=== PATIENT | male | born 1945 | race Caucasian/White ===

== ENCOUNTER 2020-05-16 14:16 | Inpatient (IN) ==
[2020-05-16] MEDS ORDERED: Cefepime 2 GM in Dextrose(*) 2 GM/50 ML BAG IV ONE (14:49)
[2020-05-16] MEDS ORDERED: NS 0.9% 1000 ml BAG 1,000 ML IV ONE (14:57)
[2020-05-16] MEDS ORDERED: Vancomycin(*) 500 MG VIAL IVPB SCH (16:00)
[2020-05-16 16:30] LABS: ABS Lymphocytes 1.2 10^3/ul (1.0-4.8); ABS Monocytes 1.2 10^3/ul (0-0.8); Hematocrit 41 % (42-52); Hemoglobin 14.1 g/dL (14.0-18.0); Lymphocyte % 9.5 %; Mean Corpuscular HGB Conc 35 g/dL (31-36); Mean Corpuscular Hemoglobin 30 pg (27-31); Mean Corpuscular Volume 86 fL (80-94); Mean Platelet Volume 7.9 fL (7.4-10.4); Nucleated Red Blood Cells % 0.3; Platelet Count 280 10^3/uL (150-450); Red Blood Count 4.74 10^6 /uL (4.18-5.48); Red Cell Distribution Width 13 % (10-15); White Blood Count 12.3 10^3/uL (3.5-10.8)
[2020-05-16] MEDS ORDERED: Vancomycin 1500 MG IV - x ONCE IVPB ONE (17:00)
[2020-05-16 17:05] LABS: Albumin 3.5 g/dL (3.2-5.2); Albumin/Globulin Ratio 1.1 (1-3); BUN/Creatinine Ratio 20.5 (8-20); C Reactive Protein 212.26 mg/L (<8.01); Calcium 9.2 mg/dL (8.6-10.3); EGFR African American 117.4 (>60); Globulin 3.3 g/dL (2-4); Potassium 3.9 mmol/L (3.5-5.0); Total Bilirubin 0.9 mg/dL (0.2-1.0); Total Protein 6.8 g/dL (6.4-8.9)
[2020-05-16] MEDS ORDERED: Enoxaparin 80 MG/0.8 ML SYR(*) SUBCUT ONE (17:50)
[2020-05-16] MEDS ORDERED: Dextrose 50% Syringe 50 ml 25 GM/50 ML SYRINGE IV PUSH PRN (17:52)
[2020-05-16] MEDS ORDERED: Piperacillin/Tazobac ADVAN(*) 3.375 GM in NS 0.9% 100 ml BAG 100 ML IVPB ONE (17:55)
[2020-05-16] MEDS ORDERED: Vancomycin(*) 1,000 MG in NS 0.9% 250 ml 250 ML IVPB ONE (17:56)
[2020-05-16] MEDS ORDERED: Vancomycin per Pharmacy 1 EA NOTE FOLLOW UP SCH (18:00)
[2020-05-16] MEDS ORDERED: Zosyn per Pharmacy NOTE FOLLOW UP SCH (18:00)
[2020-05-16 18:14] LABS: Erythrocyte Sed Rate 89 mm/Hr (0-19)
[2020-05-16] MEDS ORDERED: Insulin LISPRO 100 units/ml(*) SUBCUT SCH (21:00)
[2020-05-16] MEDS: NS 0.9% 1000 ml BAG 1,000 ML IV SCH (23:00)
[2020-05-17] MEDS: Brimonidine/Timolol 0.2%/0.5% OPTH(NF) SOL 5 ML BOTH EYES SCH ×3 (03:01→20:57)
[2020-05-17] MEDS: Dorzolamide 2% OPTH (NF) 10 ML BTL BOTH EYES SCH ×3 (03:02→20:56)
[2020-05-17] MEDS: metroNIDAZOLE IV 500 MG/100ML 500 MG/100 ML BAG IVPB SCH ×4 (03:36→15:10)
[2020-05-17] MEDS: Insulin LISPRO 100 units/ml(*) SUBCUT SCH ×5 (03:52→17:47)
[2020-05-17] MEDS ORDERED: ceFAZolin 1 GM in Dextrose (*) 1 GM/50 ML BAG IVPB SCH (05:30)
[2020-05-17] MEDS: Cefepime 1 GM in Dextrose(*) 1 GM/50 ML BAG IV SCH ×2 (05:49→17:47)
[2020-05-17] MEDS ORDERED: VANCOMYCIN IVPB SCH (06:30)
[2020-05-17] MEDS ORDERED: NS 0.9% IVPB SCH (06:30)
[2020-05-17] MEDS ORDERED: Vancomycin(*) 1,500 MG in NS 0.9% 250 ml 250 ML IVPB SCH (06:33)
[2020-05-17] MEDS: Vancomycin(*) 1,500 MG in NS 0.9% 250 ml 250 ML IVPB SCH ×2 (06:40→18:29)
[2020-05-17 08:29] LABS: ABS Lymphocytes 1.1 10^3/ul (1.0-4.8); Eosinophil % 0.1 %; Hematocrit 38 % (42-52); Hemoglobin 13.1 g/dL (14.0-18.0); Lymphocyte % 12.2 %; Mean Corpuscular HGB Conc 35 g/dL (31-36); Mean Corpuscular Hemoglobin 30 pg (27-31); Mean Corpuscular Volume 86 fL (80-94); Mean Platelet Volume 7.5 fL (7.4-10.4); Platelet Count 258 10^3/uL (150-450); Red Cell Distribution Width 13 % (10-15)
[2020-05-17 08:40] LABS: INR 1.41 (0.82-1.09)
[2020-05-17] MEDS ORDERED: Iodixanol (CONTRAST) 320 MG/ML 100 ML SDV IV ONE (08:44)
[2020-05-17 08:45] LABS: BUN/Creatinine Ratio 14.7 (8-20); Calcium 8.3 mg/dL (8.6-10.3); EGFR African American 137.6 (>60); EGFR Non-African American 113.7 (>60); Potassium 3.6 mmol/L (3.5-5.0)
[2020-05-17] MEDS ORDERED: Latanoprost 0.005% 2.5 ml BTL BOTH EYES SCH (09:00)
[2020-05-17 09:25] LABS: C Reactive Protein 199.33 mg/L (<8.01)
[2020-05-17] MEDS ORDERED: Cefepime ADVAN(*) 1 GM in NS 0.9% 50 ML 50 ML IVPB SCH (10:00)
[2020-05-17] MEDS ORDERED: Iodixanol (CONTRAST) 320 MG/ML 100 ML SDV IV SCH (10:00)
[2020-05-17 10:02] LABS: Erythrocyte Sed Rate 80 mm/Hr (0-19)
[2020-05-17] MEDS ORDERED: Enoxaparin 100 MG/ML SYR(*) SUBCUT SCH (14:11)
[2020-05-17] MEDS: NS 0.9% 1000 ml BAG 1,000 ML IV SCH (17:52)
[2020-05-17] MEDS: Latanoprost 0.005% 2.5 ml BTL BOTH EYES SCH (20:57)
[2020-05-18] MEDS: metroNIDAZOLE IV 500 MG/100ML 500 MG/100 ML BAG IVPB SCH ×2 (02:59→14:53)
[2020-05-18 05:17] LABS: HDL Cholesterol 17.9 mg/dL
[2020-05-18 05:18] LABS: EGFR African American 168.6 (>60); EGFR Non-African American 139.4 (>60)
[2020-05-18] MEDS: Cefepime 1 GM in Dextrose(*) 1 GM/50 ML BAG IV SCH ×3 (05:23→20:18)
[2020-05-18] MEDS ORDERED: Vancomycin Trough Check NOTE FOLLOW UP ONE ×2 (06:15→09:30)
[2020-05-18] MEDS: Vancomycin(*) 1,500 MG in NS 0.9% 250 ml 250 ML IVPB SCH (06:33)
[2020-05-18] MEDS ORDERED: Bupivacaine 0.25% SDV 30 ML ONE (06:57)
[2020-05-18] MEDS: Dorzolamide 2% OPTH (NF) 10 ML BTL BOTH EYES SCH ×2 (07:59→22:08)
[2020-05-18] MEDS: Brimonidine/Timolol 0.2%/0.5% OPTH(NF) SOL 5 ML BOTH EYES SCH ×2 (08:00→22:09)
[2020-05-18] MEDS: Insulin LISPRO 100 units/ml(*) SUBCUT SCH ×3 (08:05→17:33)
[2020-05-18] MEDS: Enoxaparin 40 MG/0.4 ML SYR(*) SUBCUT SCH (14:41)
[2020-05-18] MEDS: Vancomycin(*) 1,250 MG in NS 0.9% 250 ml 250 ML IV SCH ×2 (16:32→22:17)
[2020-05-18] MEDS: NS 0.9% 1000 ml BAG 1,000 ML IV SCH (18:29)
[2020-05-18] MEDS: Latanoprost 0.005% 2.5 ml BTL BOTH EYES SCH (22:09)
[2020-05-19] MEDS: metroNIDAZOLE IV 500 MG/100ML 500 MG/100 ML BAG IVPB SCH (03:20)
[2020-05-19] MEDS: Vancomycin(*) 1,250 MG in NS 0.9% 250 ml 250 ML IV SCH ×2 (06:10→14:16)
[2020-05-19] MEDS ORDERED: Lidocaine 1% VIAL 10 MG/ML VIAL ONE (07:13)
[2020-05-19] MEDS ORDERED: Iohexol 350 (CONTRAST) 200 ML MDV IV ONE ×2 (07:13→07:15)
[2020-05-19] MEDS ORDERED: Heparin 2 UNITS/ML 1000 mls 2,000 ML IV ONE (07:14)
[2020-05-19] MEDS ORDERED: Iodixanol 320 (CONTRAST) 100 ML SDV ONE ×2 (07:15→08:25)
[2020-05-19] MEDS ORDERED: nitroGLYCERIN DRIP 0 MCG/0 ML BTL ONE (07:28)
[2020-05-19] MEDS ORDERED: Midazolam 5 mg/5 ml VIAL 1 mg/ml 5 ml VIAL (5 mg) ONE (07:28)
[2020-05-19] MEDS ORDERED: fentaNYL 100 mcg/2 ml 50 MCG/ML VIAL ONE (07:28)
[2020-05-19] MEDS ORDERED: Heparin 1,000 UNIT/ML CATH LAB 1,000 10 ml (10,000 UNITS) IV ONE (07:28)
[2020-05-19] MEDS ORDERED: Metoprolol Tartrate 5 mg VIAL 5 ml VIAL (1 mg/ml) ONE ×2 (07:56→08:53)
[2020-05-19] MEDS: Cefepime 1 GM in Dextrose(*) 1 GM/50 ML BAG IV SCH (08:09)
[2020-05-19] MEDS ORDERED: hydrALAZINE 20 mg/ml 1 ML Vial IV ONE (08:16)
[2020-05-19 09:49] VITALS: BP 156/65
[2020-05-19] MEDS: Insulin LISPRO 100 units/ml(*) SUBCUT SCH ×2 (10:13→13:51)
[2020-05-19] MEDS: Brimonidine/Timolol 0.2%/0.5% OPTH(NF) SOL 5 ML BOTH EYES SCH (11:47)
[2020-05-19] MEDS: Dorzolamide 2% OPTH (NF) 10 ML BTL BOTH EYES SCH (11:47)
[2020-05-19] MEDS: Enoxaparin 40 MG/0.4 ML SYR(*) SUBCUT SCH (14:17)
[2020-05-20] MEDS ORDERED: Vancomycin Trough Check NOTE FOLLOW UP ONE (14:00)
== END 2020-05-19 16:17 | disposition short-term general hospital (02) | DRG 300 ==
LOC: ED 14:16 → SSU 20:53
PROVIDERS: ADMIT Pediatrics; ATTEND Internal Medicine

== ENCOUNTER 2022-05-07 00:43 | Inpatient (IN) ==
[2022-05-07] MEDS ORDERED: Ondansetron 4 mg VIAL 2 MG/ML 2 ml VIAL IV ONE (02:24)
[2022-05-07] MEDS ORDERED: NS 0.9% 1000 ml BAG 1,000 ML IV ONE (02:24)
[2022-05-07 03:28] LABS: ABS Lymphocytes 0.1 10^3/ul (1.0-4.8); ABS Monocytes 0.3 10^3/ul (0-0.8); ABS Neutrophils 12.3 10^3/ul (1.5-7.7); Eosinophil % 0.4 %; Hematocrit 46 % (42-52); Hemoglobin 15.3 g/dL (14.0-18.0); Lymphocyte % 0.7 %; Mean Corpuscular HGB Conc 33 g/dL (31-36); Mean Corpuscular Hemoglobin 29 pg (27-31); Mean Corpuscular Volume 87 fL (80-94); Mean Platelet Volume 7.9 fL (7.4-10.4); Platelet Count 236 10^3/uL (150-450); Red Blood Count 5.33 10^6 /uL (4.18-5.48); Red Cell Distribution Width 14 % (10-15); White Blood Count 12.8 10^3/uL (3.5-10.8)
[2022-05-07 03:35] LABS: Activated Partial Thrombo Time 28.3 seconds (26.0-38.0); INR 1.2 (0.86-1.15)
[2022-05-07 03:45] LABS: Albumin 3.9 g/dL (3.2-5.2); Albumin/Globulin Ratio 1.7 (1-3); C Reactive Protein 3.46 mg/L (<8.01); Calcium 9.2 mg/dL (8.6-10.3); Globulin 2.3 g/dL (2-4); Potassium 4.2 mmol/L (3.5-5.0); Total Protein 6.2 g/dL (6.4-8.9); eGFR CKD-EPI 64.2 (>60)
[2022-05-07 04:54] LABS: High Sensitivity Troponin 1 Hr 9 pg/mL (<20)
[2022-05-07] MEDS ORDERED: cefTRIAXone 1 gm/50 mL D5W 1 GM/50 ML BAG IV ONE (07:08)
[2022-05-07] MEDS ORDERED: Morphine 4 MG/ML VIAL (1 ml) IV ONE (09:50)
[2022-05-07] MEDS ORDERED: HYDROmorphone 1 MG/1 ML SYRINGE ONE (10:56)
[2022-05-07] MEDS ORDERED: HYDROmorphone 1 MG/1 ML SYRINGE IV SLOW PU ONE (10:57)
[2022-05-07] MEDS ORDERED: fentaNYL 100 mcg/2 ml 50 MCG/ML VIAL ONE (11:14)
[2022-05-07] MEDS ORDERED: Dextrose 50% Syringe 50 ml 25 GM/50 ML SYRINGE IV PUSH PRN (11:46)
[2022-05-07 13:08] LABS: Urine Appearance Turbid; Urine Bilirubin Negative (Negative); Urine Blood 2+ (Negative); Urine Color Yellow; Urine Glucose Negative (Negative); Urine Ketones Trace (Negative); Urine Nitrite Positive (Negative); Urine Protein 1+(30 mg/dL) (Negative); Urine Specific Gravity 1.017 (1.002-1.030); Urine Urobilinogen Negative (Negative)
[2022-05-07 13:17] LABS: Urine Bacteria 1+ (Absent); Urine Red Blood Cell 3+(>10/hpf) (Absent); Urine White Blood Cell 3+(>20/hpf) (Absent)
[2022-05-07 13:29] LABS: ABS Lymphocytes 0.3 10^3/ul (1.0-4.8); ABS Monocytes 0.8 10^3/ul (0-0.8); ABS Neutrophils 9.3 10^3/ul (1.5-7.7); Eosinophil % 0.1 %; Hematocrit 42 % (42-52); Hemoglobin 14.3 g/dL (14.0-18.0); Lymphocyte % 2.8 %; Mean Corpuscular HGB Conc 34 g/dL (31-36); Mean Corpuscular Hemoglobin 30 pg (27-31); Mean Corpuscular Volume 87 fL (80-94); Mean Platelet Volume 7.6 fL (7.4-10.4); Platelet Count 234 10^3/uL (150-450); Red Blood Count 4.81 10^6 /uL (4.18-5.48); Red Cell Distribution Width 14 % (10-15); White Blood Count 10.4 10^3/uL (3.5-10.8)
[2022-05-07 14:27] LABS: Calcium 8.1 mg/dL (8.6-10.3); Potassium 4.6 mmol/L (3.5-5.0); eGFR CKD-EPI 61.1 (>60)
[2022-05-07] MEDS: Aspirin EC 81 mg TAB.EC (enteric coated) PO SCH (14:40)
[2022-05-07] MEDS: NS 0.9% 1000 ml BAG 1,000 ML IV SCH (14:41)
[2022-05-07] MEDS ORDERED: Insulin GLARGINE 100 un/ml 10 ml VIAL SUBCUT SCH (21:00)
[2022-05-07] MEDS: PTO: Dorzolamide 2% OPTH (NF) 10 ML BTL BOTH EYES SCH (22:16)
[2022-05-08] MEDS: NS 0.9% 1000 ml BAG 1,000 ML IV SCH ×2 (00:41→11:44)
[2022-05-08 06:19] LABS: ABS Eosinophils 0.3 10^3/ul (0-0.6); ABS Lymphocytes 0.7 10^3/ul (1.0-4.8); ABS Neutrophils 5.3 10^3/ul (1.5-7.7); Eosinophil % 3.7 %; Hematocrit 40 % (42-52); Hemoglobin 13.4 g/dL (14.0-18.0); Lymphocyte % 9.5 %; Mean Corpuscular HGB Conc 34 g/dL (31-36); Mean Corpuscular Hemoglobin 30 pg (27-31); Mean Corpuscular Volume 87 fL (80-94); Mean Platelet Volume 7.7 fL (7.4-10.4); Platelet Count 212 10^3/uL (150-450); Red Blood Count 4.56 10^6 /uL (4.18-5.48); Red Cell Distribution Width 14 % (10-15); White Blood Count 7.3 10^3/uL (3.5-10.8)
[2022-05-08 06:59] LABS: Calcium 8.2 mg/dL (8.6-10.3); Magnesium 1.8 mg/dL (1.9-2.7); Potassium 4.1 mmol/L (3.5-5.0)
[2022-05-08] MEDS ORDERED: cefTRIAXone 1 gm/50 mL D5W 1 GM/50 ML BAG IV SCH (07:00)
[2022-05-08] MEDS: Aspirin EC 81 mg TAB.EC (enteric coated) PO SCH (08:39)
[2022-05-08] MEDS: PTO: Dorzolamide 2% OPTH (NF) 10 ML BTL BOTH EYES SCH ×2 (08:40→21:32)
[2022-05-08] MEDS ORDERED: Insulin GLARGINE 100 un/ml 10 ml VIAL SUBCUT SCH (21:00)
[2022-05-09 06:32] LABS: Calcium 8.5 mg/dL (8.6-10.3); Magnesium 1.8 mg/dL (1.9-2.7); Potassium 4.1 mmol/L (3.5-5.0); eGFR CKD-EPI 92.6 (>60)
[2022-05-09] MEDS ORDERED: cefTRIAXone 1 gm/50 mL D5W 1 GM/50 ML BAG IV SCH (08:00)
[2022-05-09] MEDS: Aspirin EC 81 mg TAB.EC (enteric coated) PO SCH (09:11)
[2022-05-09] MEDS: PTO: Dorzolamide 2% OPTH (NF) 10 ML BTL BOTH EYES SCH (09:16)
[2022-05-09 11:08] VITALS: BP 134/76
== END 2022-05-09 15:55 | disposition home or self-care (01) | DRG 690 ==
LOC: ED 00:43 → SUATTDRO 08:54 → EDHOLD 08:54 → SSU 11:26
PROVIDERS: ADMIT Internal Medicine; ATTEND Hospitalist